=== PATIENT | female | born 1935 | race Caucasian/White ===

== ENCOUNTER 2016-11-14 13:52 | Outpatient (CLI) | payer OTHER, BC ==
[2016-11-14 14:30] VITALS: BP 143/98; PULSE 92; RESP 16; TEMP 98.4
== END 2016-11-14 18:00 | disposition home or self-care (01) ==
LOC: FOBOP 13:52
PROVIDERS: ATTEND Family Medicine
PROC: 30233N1 Transfusion of Nonautologous Red Blood Cells into Peripheral Vein, Percutaneous Approach (ICD-10-PCS; principal; 2016-11-14)
DX: D50.0 Iron deficiency anemia secondary to blood loss (chronic) (principal); Z88.8 Allergy status to other drugs, medicaments and biological substances; Z88.2 Allergy status to sulfonamides
CPT/HCPCS: 36430; P9021

== ENCOUNTER → 2018-03-08 | Outpatient (CLI) | payer OTHER | LOC: CIMAGING 07:17 | PROVIDERS: ATTEND Family Medicine | DX: D64.9 Anemia, unspecified (principal); R19.03 Right lower quadrant abdominal swelling, mass and lump; R63.4 Abnormal weight loss; K76.0 Fatty (change of) liver, not elsewhere classified | CPT/HCPCS: 76700-PO ==

== ENCOUNTER 2018-03-30 15:40 | Emergency (ER) | payer OTHER ==
--- NOTE | 2018-03-30 15:55 | EDPHY ---
H & P Stated Complaint: NVD Time Seen by Provider: 03/30/18 15:55 - Personal History Current Tetanus Diphtheria and Acellular Pertussis (TDAP): Yes - Medical/Surgical History Hx Asthma: No Hx Chronic Respiratory Disease: No Hx Diabetes: No Hx Cardiac Disease: No Hx Renal Disease: No Hx Cirrhosis: No Hx Alcoholism: No Hx HIV/AIDS: No Hx Splenectomy or Spleen Trauma: No Other PMH: ANEMIA, OSTEOPOROSIS, CATARACTS - Social History Smoking Status: Never smoked Constitutional: Initial Vital Signs Temperature (C) 36.7 C 03/30/18 15:46 Heart Rate 105 H 03/30/18 15:46 Respiratory Rate 18 03/30/18 15:46 Blood Pressure 133/72 H 03/30/18 15:46 O2 Sat (%) 97 03/30/18 15:46 O2 Delivery Mode Room Air Allergies/Adverse Reactions: promethazine [From Phenergan] Allergy (Severe, Verified 03/30/18 15:46) Sulfa (Sulfonamide Antibiotics) Allergy (Mild, Verified 03/30/18 15:46) Rash metoclopramide [From Reglan] Allergy (Verified 03/30/18 15:46) Home Medications: Medication Instructions Recorded Ondansetron Odt [Zofran Odt 4 mg 4 mg PO Q4 PRN #12 tab 10/29/17 (*)] Restasis Opht Drops(*) 10/29/17 Medical Decision Making ED Course/Re-evaluation: CHIEF COMPLAINT: HISTORY OF PRESENT ILLNESS: must have 4 elements: Location, Quality, Severity , Duration, Timing, Context, Modifying Factors, Associated Signs and Symptoms REVIEW OF SYSTEMS: A comprehensive 10 system review of systems is otherwise negative aside from elements mentioned in the history of present illness and medical decision making. PHYSICAL EXAM: HR, BP, O2 Sat, RR. Temp noted General Appearance: Alert, well hydrated, appropriate, and non-toxic appearing. Head: Atraumatic without scalp tenderness or obvious injury Eyes: Pupils equal, round, reactive to light and accommodation, EOMI, no trauma , no injection. Ears: Clear bilaterally, no perforation, normal landmarks Nose: Atraumatic, no rhinorrhea, clear. Throat: There is no erythema or exudates, no lesions, normal tonsils, mucus membranes moist. Neck: Supple, 2+ carotid upstroke, nontender, no lymphadenopathy. Respiratory: No retractions, no distress, no wheezes, and no accessory muscle use. Lungs are clear to auscultation bilaterally. Cardiovascular: Regular rate and rhythm, no murmurs, rubs, or gallops. Bilateral carotid, radial, dorsalis pedis, and posterior tibial pulses intact. Good capillary refill all extremities. Gastrointestinal: Abdomen is soft, nontender, non-distended, no masses, no rebound, no guarding, no peritoneal signs. Musculoskeletal: Normal active ROM of all extremities, atraumatic. Neurological: Alert, appropriate, and interactive. The patient has normal DTRs and non-focal cranial nerves, motor, sensory, and cerebellar exam. Skin: No rashes, good turgor, no nodules on palpation. Past medical history: Past surgical history: Family history: Social history: DIAGNOSTICS/PROCEDURES/CRITICAL CARE TIME: DIFFERENTIAL DIAGNOSIS: MEDICAL DECISION MAKING: Departure - Departure Condition: Good Referrals: Arabella Alfonso MD [Primary Care Provider] - As per Instructions
[2018-03-30] MEDS ORDERED: NS 1,000 ML IV ONE (15:56)
--- NOTE | 2018-03-30 16:11 | EDPHY ---
H & P Stated Complaint: NVD Time Seen by Provider: 03/30/18 15:55 HPI/ROS: CHIEF COMPLAINT: Nausea, vomiting, diarrhea, feels dehydrated HISTORY OF PRESENT ILLNESS: The patient presents the ED with several days of nausea, vomiting and diarrhea. The patient reports her symptoms began after taking a single dose of Keflex. The patient reportedly has recently been diagnosed with an abdominal mass and is scheduled to undergo colonoscopy at the end of the week. The patient reports that over the past day her vomiting has improved however she does feel dehydrated is concerned about rehydrating prior to her endoscopy. The patient was seen by her primary care provider and diagnosed with mild hyponatremia which prompted her referral to the emergency department. The patient denies significant abdominal pain currently. The patient denies fever, cough or congestion. REVIEW OF SYSTEMS: A comprehensive 10 point review of systems is otherwise negative aside from elements mentioned in the history of present illness. Source: Patient Exam Limitations: No limitations - Personal History Current Tetanus Diphtheria and Acellular Pertussis (TDAP): Yes - Medical/Surgical History Hx Asthma: No Hx Chronic Respiratory Disease: No Hx Diabetes: No Hx Cardiac Disease: No Hx Renal Disease: No Hx Cirrhosis: No Hx Alcoholism: No Hx HIV/AIDS: No Hx Splenectomy or Spleen Trauma: No Other PMH: ANEMIA, OSTEOPOROSIS, CATARACTS - Social History Smoking Status: Never smoked - Physical Exam Exam: General Appearance: Thin female, no acute distress Eyes: Pupils equal and round no pallor or injection ENT, Mouth: Dry mucous membranes Respiratory: There are no retractions, lungs are clear to auscultation Cardiovascular: Regular rate and rhythm Gastrointestinal: Abdomen is soft and nontender, no masses, bowel sounds normal Neurological: A&O, normal motor function, normal sensory exam, normal cranial nerves Skin: Abrasions noted to bilateral lower extremities Musculoskeletal: Neck is supple nontender Extremities: 1+ edema bilaterally Psychiatric: Patient is oriented X 3, there is no agitation Constitutional: Initial Vital Signs Temperature (C) 36.7 C 03/30/18 15:46 Heart Rate 105 H 03/30/18 15:46 Respiratory Rate 18 03/30/18 15:46 Blood Pressure 133/72 H 03/30/18 15:46 O2 Sat (%) 97 03/30/18 15:46 O2 Delivery Mode Room Air Allergies/Adverse Reactions: promethazine [From Phenergan] Allergy (Severe, Verified 03/30/18 15:46) Sulfa (Sulfonamide Antibiotics) Allergy (Mild, Verified 03/30/18 15:46) Rash metoclopramide [From Reglan] Allergy (Verified 03/30/18 15:46) Home Medications: Medication Instructions Recorded Ondansetron Odt [Zofran Odt 4 mg 4 mg PO Q4 PRN #12 tab 10/29/17 (*)] Restasis Opht Drops(*) 10/29/17 Ondansetron Odt [Zofran Odt] 4 mg PO Q4PRN PRN #20 tab 03/30/18 Medical Decision Making ED Course/Re-evaluation: The patient was referred to the emergency department by her primary care provider for assumed admission secondary to hypovolemia electrolyte abnormalities. The patient has been having vomiting and diarrhea this week and was noted to have a sodium of 127 yesterday. The patient arrived she did appear mildly dehydrated. She had an IV established. Her sodium was recheck and found to be 132. The patient has normal renal function. She has no leukocytosis. The patient received a L of normal saline in the emergency department. The patient reports to me that her vomiting subsided today. She is scheduled to undergo colonoscopy on Wednesday however I do not feel that she needs to be admitted to the hospital secondary to dehydration and a metabolic derangement. The patient is comfortable going home. She does understand that she can return to the ED for any difficulty maintaining adequate hydration. I see no reason why she cannot perform a bowel prep and undergo for colonoscopy on Wednesday. I did attempt to reach the patient's primary care provider after hours without success. Patient will be given a prescription for Zofran. She is discharged home with customary aftercare instructions and return precautions. Differential Diagnosis: Differential diagnosis considered includes dehydration, metabolic abnormality, renal failure - Data Points Laboratory Results: Laboratory Results 03/30/18 16:15 03/30/18 16:15 03/30/18 03/30/18 16:15 16:15 WBC 8.71 10^3/uL 10^3/uL (3.80-9.50) RBC 3.86 10^6/uL L 10^6/uL (4.18-5.33) Hgb 9.3 g/dL L g/dL (12.6-16.3) Hct 30.9 % L % (38.0-47.0) MCV 80.1 fL L fL (81.5-99.8) MCH 24.1 pg L pg (27.9-34.1) MCHC 30.1 g/dL L g/dL (32.4-36.7) RDW 21.8 % H % (11.5-15.2) Plt Count 510 10^3/uL H 10^3/uL (150-400) MPV 8.8 fL fL (8.7-11.7) Neut % (Auto) 77.0 % H % (39.3-74.2) Lymph % (Auto) 15.2 % % (15.0-45.0) [place] % (Auto) 5.6 % % (4.5-13.0) Eos % (Auto) 0.1 % L % (0.6-7.6) Baso % (Auto) 0.1 % L % (0.3-1.7) Nucleat RBC Rel Count 0.0 % % (0.0-0.2) Absolute Neuts (auto) 6.71 10^3/uL H 10^3/uL (1.70-6.50) Absolute Lymphs (auto) 1.32 10^3/uL 10^3/uL (1.00-3.00) Absolute Monos (auto) 0.49 10^3/uL 10^3/uL (0.30-0.80) Absolute Eos (auto) 0.01 10^3/uL L 10^3/uL (0.03-0.40) Absolute Basos (auto) 0.01 10^3/uL L 10^3/uL (0.02-0.10) Absolute Nucleated RBC 0.00 10^3/uL 10^3/uL (0-0.01) Immature Gran % 2.0 % H % (0.0-1.1) Immature Gran # 0.17 10^3/uL H 10^3/uL (0.00-0.10) Sodium 132 mEq/L L mEq/L (135-145) Potassium 3.8 mEq/L mEq/L (3.5-5.2) Chloride 97 mEq/L mEq/L (97-110) Carbon Dioxide 24 mEq/l mEq/l (22-31) Anion Gap 11 mEq/L mEq/L (6-14) BUN 17 mg/dL mg/dL (7-23) Creatinine 0.5 mg/dL L mg/dL (0.6-1.0) Estimated GFR > 60 Glucose 90 mg/dL mg/dL (70-100) Calcium 8.5 mg/dL mg/dL (8.5-10.4) Total Bilirubin 0.8 mg/dL mg/dL (0.1-1.4) Conjugated Bilirubin 0.7 mg/dL H mg/dL (0.0-0.5) Unconjugated Bilirubin 0.1 mg/dL mg/dL (0.0-1.1) AST 19 IU/L IU/L (14-46) ALT 23 IU/L IU/L (9-52) Alkaline Phosphatase 100 IU/L IU/L (38-126) Total Protein 5.5 g/dL L g/dL (6.3-8.2) Albumin 2.6 g/dL L g/dL (3.5-5.0) Lipase 15 IU/L L IU/L (23-300) Medications Given: Discontinued Medications Sodium Chloride (Ns) 1,000 mls @ 0 mls/hr IV EDNOW ONE; Wide Open PRN Reason: Protocol Stop: 03/30/18 15:57 Last Admin: 03/30/18 16:26 Dose: 1,000 mls Departure - Departure Disposition: Home, Routine, Self-Care Clinical Impression: Gastroenteritis Condition: Good Instructions: Gastroenteritis (ED) Additional Instructions: 1. Zofran as needed for nausea and vomiting. 2. Please contact your primary care provider to review your ED visit from today. 3. Return to the ED for intractable vomiting, worsening dehydration or other concerns. Referrals: Arabella Alfonso MD [Primary Care Provider] - As per Instructions
[2018-03-30 16:37] LABS: PLATELET COUNT 510 10^3/uL (150-400)
[2018-03-30 18:48] VITALS: BP 118/76
== END 2018-03-30 18:48 | disposition home or self-care (01) ==
DX: K52.9 Noninfective gastroenteritis and colitis, unspecified (principal); R19.00 Intra-abdominal and pelvic swelling, mass and lump, unspecified site; E86.9 Volume depletion, unspecified

== ENCOUNTER 2018-04-21 09:44 | Inpatient (IN) | payer OTHER ==
[~2018-04-21 09:44] MED LIST: DEXMEDETOMIDINE HCL 400 MCG in NS 100 ML IV SCH; cefOXitin SODIUM 2 GM in NS 100 ML IV ONE
[2018-04-21] MEDS ORDERED: LR 1,000 ML IV ONE (09:59)
[2018-04-21] MEDS ORDERED: BUPIVACAINE 0.5% 30 ML SDV ONE ×2 (09:59→12:31)
[2018-04-21] MEDS ORDERED: PROPOFOL 200 MG/20 ML VIAL ONE (11:07)
[2018-04-21] MEDS ORDERED: fentaNYL 100 MCG/2 ML INJ ONE ×3 (11:07→13:58)
[2018-04-21] MEDS ORDERED: DEXAMETHASONE 4 MG/ML VIAL ONE (11:08)
--- NOTE | 2018-04-21 11:12 | PDANEPAE ---
ANE Past Medical History - Cardiovascular History Hx Hypertension: No Hx Arrhythmias: No Hx Chest Pain: No Hx Coronary Artery / Peripheral Vascular Disease: No Hx CHF / Valvular Disease: No Hx Palpitations: No - Pulmonary History Hx COPD: No Hx Asthma/Reactive Airway Disease: No Hx Recent Upper Respiratory Infection: No Hx Oxygen in Use at Home: No Hx Sleep Apnea: No Sleep Apnea Screening Result - Last Documented: Negative - Neurologic History Hx Cerebrovascular Accident: No Hx Seizures: No Hx Dementia: No - Endocrine History Hx Diabetes: No - Renal History Hx Renal Disorders: No - Liver History Hx Hepatic Disorders: No - Neurological & Psychiatric Hx Hx Neurological and Psychiatric Disorders: Yes Neurological / Psychiatric History Comment: anxiety- situational. claustrophia - Cancer History Hx Cancer: Yes Cancer History Comment: basal cell ca - Congenital Disorder History Hx Congenital Disorders: No - GI History Hx Gastrointestinal Disorders: Yes Gastrointestinal History Comment: recent colonoscopy. cecal mass. diverticulosis. diarrhea. severe abd pain last two weeks - Other Health History Other Health History: wears glasses. very dry skin. recent wound to right leg - healing no open areas. edema to bilateral feet and ankles- new development - Chronic Pain History Chronic Pain: No - Surgical History Prior Surgeries: tonsillectomy. bilateral cataracts 08/2016. hysterectomy. d& c. colonoscopy ANE Review of Systems Review of Systems: - Exercise capacity METS (RN): 4 METS ANE Patient History - Allergies Allergies/Adverse Reactions: metoclopramide [From Reglan] Allergy (Verified 04/15/18 12:08) Anaphylaxis promethazine [From Phenergan] Allergy (Verified 04/15/18 12:08) Anaphylaxis Sulfa (Sulfonamide Antibiotics) Allergy (Verified 04/15/18 12:08) Rash - Home Medications Home medications: home medication list seen and reviewed Home Medications: cycloSPORINE 0.05% [Restasis Opht Drops(*)] 1 drop EACHEYE BID 04/14/18 [Last Taken 04/20/18] - NPO status NPO Since - Liquids (Date): 04/20/18 NPO Since - Liquids (Time): 23:59 NPO Since - Solids (Date): 04/19/18 - Anes Hx Anes Hx: no prior problems, slow to awaken from anesthesia - Smoking Hx Smoking Status: Never smoked - Family Anes Hx Family Anes Hx: none Family Hx Anesthesia Complications: none ANE Labs/Vital Signs - Labs - CBC Platelet Count: 597 - Vital Signs Vital Signs: reviewed preoperatively; see RN documention for details Blood Pressure: 122/84 Heart Rate: 88 Respiratory Rate: 16 O2 Sat (%): 97 Height: 149.86 cm Weight: 36.741 kg ANE Physical Exam - Airway Neck exam: decreased ROM Mallampati Score: Class 1 Mouth exam: normal dental/mouth exam - Pulmonary Pulmonary: clear to auscultation - Cardiovascular Cardiovascular: regular rate and rhythym - ASA Status ASA Status: III ANE Anesthesia Plan Anesthesia Plan: general endotracheal anesthesia, epidural
--- NOTE | 2018-04-21 11:13 | PDHPUP ---
History & Physical Update H&P update statement: This history and physical update is based on an assessment of the patient which was completed after admission or registration (within 24 hours), but prior to the surgery/procedure. H&P update: H&P reviewed & patient examined, no change in patient's condition since H&P completed
[2018-04-21] MEDS ORDERED: ESMOLOL HCL 100 MG/10 ML VIAL IV ONE (12:31)
[2018-04-21] MEDS ORDERED: ROCURONIUM 50 MG/5 ML VIAL ONE (12:39)
[2018-04-21] MEDS ORDERED: PHENYLEPHRINE HCL 100 MCG/ML SYR ONE (12:39)
[2018-04-21] MEDS ORDERED: ONDANSETRON 4 MG/2 ML VIAL ONE ×2 (13:32→13:56)
[2018-04-21] MEDS ORDERED: SUGAMMADEX SODIUM 200 MG/2 ML VIAL IVP ONE (13:35)
[2018-04-21] MEDS ORDERED: ACETAMINOPHEN 325 MG TAB PO PRN (13:41)
--- NOTE | 2018-04-21 13:44 | POSTOPPROG ---
Post Op Note Date of Operation: 04/21/18 Surgeon: Codi Jack Transport Tank Technician: cinda Anesthesiologist: geetha Anesthesia: GET(General Endotracheal) Pre-op Diagnosis: colon mass Post-op Diagnosis: same Indication: 82 yo with large colon mass Procedure: open r tomas, small bowel resection, oophorectomy, liver biopsy Findings: colon tethered to abdominal side wall and smallbowel. Lesion l lobe of mariya Inf/Abcess present in the surg proc area at time of surgery?: No EBL: 50-100 Specimen(s): colon, small bowel, ovary, liver biopsy
[2018-04-21] MEDS ORDERED: LR 500 ML IV PRN (13:55)
[2018-04-21] MEDS ORDERED: ONDANSETRON 4 MG/2 ML VIAL IVP PRN (13:55)
[2018-04-21] MEDS ORDERED: ALBUTEROL 3 ML DEYVIAL IH PRN (13:55)
[2018-04-21] MEDS ORDERED: DIAZEPAM 5 MG/ML 1 ML SYR IVP PRN (13:55)
[2018-04-21] MEDS ORDERED: NALOXONE HCL 0.4 MG/ML INJ IVP PRN (13:55)
[2018-04-21] MEDS: fentaNYL 100 MCG/2 ML INJ IVP PRN ×2 (14:00→14:10)
--- NOTE | 2018-04-21 14:05 | POSTANESTH ---
Post Anesthetic Evaluation Cardiovascular Status: Normal, Stable Respiratory Status: Normal, Stable Level of Consciousness/Mental Status: Can Participate in Eval Pain Control: Inadeq, Add Tx Required Nausea/Vomiting Control: Adequate, Prn Tx Ordered Complications Possibly Related to Anesthesia: None Noted (No level with epidural. Redosed. Will remove if not working.)
[2018-04-21] MEDS: ONDANSETRON 4 MG/2 ML VIAL IVP PRN ×2 (14:11→15:55)
[2018-04-21] MEDS ORDERED: HYDROmorphONE/DILAUDID 2 MG/ML INJ ONE (14:21)
[2018-04-21] MEDS: HYDROmorphONE/DILAUDID 2 MG/ML INJ IVP PRN ×3 (14:23→15:37)
--- NOTE | 2018-04-21 15:46 | PDMN ---
Medical Necessity Medical necessity: Pt meets IP criteria as of 04/21/2018 per and [facility] [place] [id number] ( hemicolectomy); Medicare IP only procedure
[2018-04-21] MEDS: NS 1,000 ML IV SCH (16:30)
[2018-04-21] MEDS: cycloSPORINE 0.05% 30 DROPERETTE/BOX EACHEYE SCH (22:57)
[2018-04-22] MEDS: ONDANSETRON 4 MG/2 ML VIAL IVP PRN ×3 (03:22→12:42)
[2018-04-22] MEDS: NS 1,000 ML IV SCH ×2 (05:27→17:15)
[2018-04-22 05:48] LABS: PLATELET COUNT 378 10^3/uL (150-400)
--- NOTE | 2018-04-22 08:44 | SOAPPROG ---
SOAP Progress Note Assessment/Plan: Assessment/Plan: 82yo F s/p open R hemicolectomy, SB resection, oophorectomy and liver biopsy for large cecal mass, liver nodule (r/o met). IV pain medication until able to tolerate PO NPO - sips and chips. OK to have 1 popsicle / shift. Marcos IVF No flatus or BM Ambulation, deep breathing, IS Dispo: inpatient 3-7d until return of bowel function.Seen with Dr. Jack S: hard night, not much sleep. no flatus. burping. cramping O: laying in bed, comfortable, NAD CTAB no increased WOB RRR, 1+ peripheral edema +BS, soft, +distended, tender. Midline dressing in place, no staining Marcos clear yellow urine Objective: Vital Signs Temp Pulse Resp BP Pulse Ox 36.4 C 90 20 114/70 100 04/22/18 03:30 04/22/18 03:30 04/22/18 03:30 04/22/18 03:30 04/22/18 03:30 Laboratory Results 04/22/18 05:28 04/22/18 05:28 04/21/18 04/22/18 04/23/18 05:59 05:59 05:59 Intake Total 2600 Output Total 170 550 Balance 2430 -550 ICD10 Worksheet Patient Problems: Problems Problem Status Onset Mass of cecum Acute - ICD10 Problem Qualifiers (1) Mass of cecum
[2018-04-22] MEDS: cycloSPORINE 0.05% 30 DROPERETTE/BOX EACHEYE SCH ×2 (09:20→21:05)
--- NOTE | 2018-04-22 15:55 | SOAPPROG ---
SOAP Progress Note Assessment/Plan: Assessment: 82yo F s/p open R hemicolectomy, SB resection, oophorectomy and liver biopsy for large cecal mass, liver nodule (r/o met). Plan: Continue IV pain medication until able to tolerate PO NPO - sips and chips. Hold popsicles as she thinks she had a reaction to the preservaties Marcos - can come out tomorrow IVF Continue PT/OT, needs to be up in chair Lovenox Ambulation, deep breathing, IS Dispo: inpatient 3-7d until return of bowel function S: No flatus or BM, continues to burp. Worked with PT sitting up and hanging legs over side of bed. Allergic reaction to popsicle, had difficulty swallowing. Symptoms have since resolved, no medication was needed. O: laying in bed, comfortable, NAD. at bedside. No increased WOB +BS, soft, +distended, mild diffuse tenderness. Midline dressing in place, no staining urine clear 04/22/18 15:53 04/23/18 06:47 Objective: Vital Signs Temp Pulse Resp BP Pulse Ox 36.6 C 102 H 16 105/62 95 04/22/18 11:20 04/22/18 11:20 04/22/18 11:20 04/22/18 11:20 04/22/18 11:20 Laboratory Results 04/22/18 05:28 04/22/18 05:28 04/21/18 04/22/18 04/23/18 05:59 05:59 05:59 Intake Total 2600 Output Total 170 550 Balance 2430 -550 ICD10 Worksheet Patient Problems: Problems Problem Status Onset Mass of cecum Acute
--- NOTE | 2018-04-22 16:26 | ASMTCMCOM ---
CM Note CM Note Notes: Pt is staus post liver biopsy and colon resection. She lives at home with , pt worked with PT today, limited by pain but may progress. Recommendation is SNF vs H, OT still pending. JENNA w/f. DC Plan: TBD Date Signed: 04/22/2018 04:25 PM Electronically Signed By:Ledy Qiu RN
--- NOTE | 2018-04-22 17:01 | ASMTCMCOM ---
CM Note CM Note Notes: Discussed pt with pharmacist, pt does not want TPN at home. He is eating more and they will start to wean him off. Hopefully he can dc home w/support of . [facility] was given a referra several weeks ago but pt did not want. DC home w/ when medically stable. DC Plan: Independent Date Signed: 04/22/2018 05:00 PM Electronically Signed By:Ledy Qiu RN
[2018-04-22] MEDS ORDERED: KETOROLAC 15 MG/1 ML SDV IVP ONE (18:00)
[2018-04-23] MEDS: NS 1,000 ML IV SCH ×2 (04:44→18:50)
[2018-04-23 07:45] LABS: PLATELET COUNT 330 10^3/uL (150-400)
[2018-04-23] MEDS: cycloSPORINE 0.05% 30 DROPERETTE/BOX EACHEYE SCH ×2 (08:12→20:23)
[2018-04-23] MEDS: ENOXAPARIN 30 MG/0.3 ML SYR SC SCH (08:13)
[2018-04-23] MEDS ORDERED: ENOXAPARIN 40 MG/0.4 ML SYR SC SCH (09:00)
--- NOTE | 2018-04-23 09:10 | GOP ---
[f rep st] OPERATIVE REPORT DATE OF OPERATION: 04/21/2018 SURGEON: Codi Jack MD BUSINESS INFORMATION ANALYST: Hardy Johnson MD. ANESTHESIOLOGIST: Mell Cat MD PREOPERATIVE DIAGNOSIS: Cecal mass, liver mass, and possible sigmoid stricture. POSTOPERATIVE DIAGNOSIS: Cecal mass and liver mass, colon cancer with likely metastasis. PROCEDURE PERFORMED: Open right hemicolectomy, small-bowel resection, oophorectomy, and liver biopsy. FINDINGS: She had an extremely large cecal mass that was tethered to the lateral abdominal wall. It was very stuck retroperitoneal. There were loops of small bowel intimately associated with the cecum as well as the ovary. She had a liver mass in the left lobe of the liver at the dome. I did not find any stricture or tethering of her remaining colon. SPECIMENS: 1. En bloc resection of right hemicolectomy, small-bowel ovary. 1. Liver biopsy. 2. ESTIMATED BLOOD LOSS: 200 cc. INDICATIONS: Landy Elkins is an 82-year-old woman, who was found to have a very large cecal mass. Colonoscopy was obtained, but they were unable to go into the transverse colon due to external compression. She was also noted to have a liver lesion on CT. DESCRIPTION OF PROCEDURE: Patient was brought into the operating room, placed supine on the table, and general anesthesia was administered. Her abdomen was prepped and draped in the usual sterile fashion. I made an incision from above her umbilicus down through the midline. I dissected down through the skin subcutaneous tissue until I encountered the fascia. I elevated this, divided it , and then was able to fully expose. I placed a large Jose wound protector. I immediately encountered the large cecal mass and found that this was intimately associated with the sidewall as well as the retroperitoneum. The white line of Toldt was essentially obliterated. I had to perform careful and tedious dissection to medialize it from the sidewall. The ureter was identified , protected, and carefully dissected away from the mass. The duodenum was also visualized and dissected free from the mass. I was able to completely take down the hepatic flexure at the transverse colon. There were no areas of adhesion. At the area of the cecum, she had a piece of bowel directly entering the cecum. This was divided with a MICHELLE 75. Also noted that her ovary was in the same area. She had a 2nd piece of bowel that was intimately associated, and this was divided as well. Upon examining this en bloc resection, it was actually the same loop of bowel. I could divide the mesentery. Her right colic artery was generous. We performed careful dissection until this was the only structure directly entering the area. I could feel a few lymph nodes, but again due to the contraction and the large vessels, I did not dissect deep down into the mesentery for fear that I would be injuring other vessels. I divided the right colic with the Harmonic. I then placed a 2-0 tie over it to secure it. I passed the specimen off the field. I then spent time exploring her abdomen. I ran the remaining part of her colon, and there were no other abnormalities noted. There were no signs of carcinomatosis. There were no peritoneal or mesenteric implants. On the dome of her liver on the left side, she did have a lesion. I used electrocautery to biopsy this. Hemostasis was achieved and Surgicel applied. Next, I examined the small bowel. I aligned the small bowel to the transverse colon along the antimesenteric borders. I placed stay sutures and then created 2 enterotomies, 1 on each limb of the bowel. I placed a MICHELLE 75 to create a [id number] functional end-to-end anastomosis. I then closed the enterotomy with a MICHELLE 75. Hemostasis was achieved. I placed a few reinforcement sutures to prevent tension from any of the staple lines or from the [id number] anastomosis. I closed the mesenteric defect with 3-0 Vicryl. The abdomen was inspected again. The fascia was closed with #1 PDS, yamilet applied, and then a silver dressing. She was awakened in the operating room, extubated, and transferred to PACU in stable condition. /[id number]/MODL MTDD
--- NOTE | 2018-04-23 11:46 | ASMTCMCOM ---
CM Note CM Note Notes: Spoke with pt today - she does not want a SNF d/c but would like HC PT/OT. Encouraged her to get input from PT/OT. Discussed HC options and she would like [facility]. Referral sent via [employer]. Pt lives in [place] ([place] [id number]) with her partner. CM will continue to follow. Date Signed: 04/23/2018 11:45 AM Electronically Signed By:SARAH Burris
[2018-04-23] MEDS: KETOROLAC 15 MG/1 ML SDV IVP SCH ×2 (12:45→19:22)
[2018-04-23] MEDS: ONDANSETRON 4 MG/2 ML VIAL IVP PRN (13:56)
--- NOTE | 2018-04-23 16:15 | SOAPPROG ---
SOAP Progress Note Assessment/Plan: Assessment: DOING REASONABLY WELL POSTOP/WOUND OKAY/ABDOMEN SOFT WITH MINIMAL TENDERNESS AND POSITIVE BOWEL SOUNDS/URINE OUTPUT OKAY AFEBRILE/VITAL SIGNS STABLE ABDOMEN SOFT WITH SOME BOWEL SOUNDS CHEST CLEAR COR REGULAR RHYTHM HEENT NONICTERIC Plan: START CLEAR LIQUIDS 04/23/18 16:13 Objective: Vital Signs Temp Pulse Resp BP Pulse Ox 36.9 C 97 16 99/62 L 94 04/23/18 15:56 04/23/18 15:56 04/23/18 15:56 04/23/18 15:56 04/23/18 15:56 Laboratory Results 04/23/18 07:31 04/22/18 05:28 04/22/18 04/23/18 04/24/18 05:59 05:59 05:59 Intake Total 2600 Output Total 170 1225 Balance 2430 -1225 ICD10 Worksheet Patient Problems: Problems Problem Status Onset Mass of cecum Acute
[2018-04-23] MEDS: PANTOPRAZOLE SODIUM 40 MG VIAL IVP SCH (19:21)
[2018-04-24] MEDS: KETOROLAC 15 MG/1 ML SDV IVP SCH ×5 (00:06→23:32)
[2018-04-24] MEDS: NS 1,000 ML IV SCH ×3 (05:06→23:33)
[2018-04-24] MEDS ORDERED: NS 250 ML IV ONE (07:00)
[2018-04-24] MEDS: ONDANSETRON 4 MG/2 ML VIAL IVP PRN ×4 (08:02→23:33)
[2018-04-24] MEDS: ENOXAPARIN 30 MG/0.3 ML SYR SC SCH (08:02)
[2018-04-24] MEDS: PANTOPRAZOLE SODIUM 40 MG VIAL IVP SCH (08:03)
[2018-04-24] MEDS: cycloSPORINE 0.05% 30 DROPERETTE/BOX EACHEYE SCH ×2 (11:53→19:52)
--- NOTE | 2018-04-24 13:28 | SOAPPROG ---
SOAP Progress Note Assessment/Plan: Assessment: DOING REASONABLY WELL POSTOP/WOUND OKAY/ABDOMEN SOFT WITH MINIMAL TENDERNESS AND POSITIVE BOWEL SOUNDS/URINE OUTPUT OKAY AFEBRILE/VITAL SIGNS STABLE ABDOMEN SOFT WITH SOME BOWEL SOUNDS CHEST CLEAR COR REGULAR RHYTHM HEENT NONICTERIC Plan: START CLEAR LIQUIDS 04/23/18 16:13 04/24/18 13:27 afebrile/ wound ok/ vac inplace/ afebrile/ uo good abd soft with bs tolerating clears chest clear/ cor rr Objective: Vital Signs Temp Pulse Resp BP Pulse Ox 36.6 C 100 16 102/64 96 04/24/18 12:00 04/24/18 12:00 04/24/18 12:00 04/24/18 12:00 04/24/18 12:00 Laboratory Results 04/23/18 07:31 04/22/18 05:28 04/23/18 04/24/18 04/25/18 05:59 05:59 05:59 Intake Total 1020 360 Output Total 1225 120 60 Balance -1225 900 300 ICD10 Worksheet Patient Problems: Problems Problem Status Onset Mass of cecum Acute
[2018-04-25] MEDS: KETOROLAC 15 MG/1 ML SDV IVP SCH ×3 (06:39→17:43)
[2018-04-25] MEDS: PANTOPRAZOLE SODIUM 40 MG VIAL IVP SCH (08:14)
[2018-04-25] MEDS: ENOXAPARIN 30 MG/0.3 ML SYR SC SCH (08:15)
[2018-04-25] MEDS: cycloSPORINE 0.05% 30 DROPERETTE/BOX EACHEYE SCH ×2 (12:55→19:18)
[2018-04-25] MEDS ORDERED: LORazepam 2 MG/ML INJ IVP PRN (15:49)
--- NOTE | 2018-04-25 15:52 | SOAPPROG ---
SOAP Progress Note Assessment/Plan: Assessment/Plan: 82yo F POD#4 s/p open R hemicolectomy, SB resection, oophorectomy and liver biopsy for large cecal mass, liver nodule (r/o met). IV pain medication until able to tolerate PO Clear liquids - advanced yesterday but had vomiting after eating - back off. Voiding spontaneously s/p porras removal IVF Passing flatus. Several small BM Ambulation, deep breathing, IS Dispo: continue inpatient until return of bowel function. Seen with Dr. Jack S: still not sleeping well - may do better in a room not next to the nursing station. passing gas overnight. abd feels less distended. O: laying in bed, comfortable, NAD CTAB no increased WOB RRR, 1+ peripheral edema +BS, soft, +distended, nontender. Midline dressing in place, no staining Objective: Vital Signs Temp Pulse Resp BP Pulse Ox 36.6 C 95 18 119/60 95 04/25/18 15:05 04/25/18 15:05 04/25/18 15:05 04/25/18 15:05 04/25/18 15:05 Laboratory Results 04/23/18 07:31 04/22/18 05:28 04/24/18 04/25/18 04/26/18 05:59 05:59 05:59 Intake Total 1020 2440 100 Output Total 120 805 475 Balance 900 1635 -375 ICD10 Worksheet Patient Problems: Problems Problem Status Onset Mass of cecum Acute - ICD10 Problem Qualifiers (1) Mass of cecum
[2018-04-25] MEDS: NS 1,000 ML IV SCH (16:12)
[2018-04-26] MEDS: KETOROLAC 15 MG/1 ML SDV IVP SCH ×4 (00:05→18:25)
[2018-04-26] MEDS: NS 1,000 ML IV SCH ×2 (05:59→18:26)
--- NOTE | 2018-04-26 08:45 | SOAPPROG ---
SOAP Progress Note Assessment/Plan: Assessment/Plan: 82yo F POD#5 s/p open R hemicolectomy, SB resection, oophorectomy and liver biopsy for large cecal mass, liver nodule (r/o met). Path pending Transition to PO meds if needed. Regular diet Voiding spontaneously s/p porras removal Passing flatus and bowel movements Ambulation, deep breathing, IS Dispo: continue inpatient until return of bowel function. Seen with Dr. Jack S: slept better overnight. nausea improved. distension going down. O: sitting upright in chair, comfortable, NAD CTAB no increased WOB RRR, 1+ peripheral edema +BS, soft, +distended, nontender. Midline dressing in place, no staining Objective: Vital Signs Temp Pulse Resp BP Pulse Ox 36.5 C 91 16 110/63 94 04/26/18 07:18 04/26/18 07:18 04/26/18 07:18 04/26/18 07:18 04/26/18 07:18 Laboratory Results 04/23/18 07:31 04/22/18 05:28 04/25/18 04/26/18 04/27/18 05:59 05:59 05:59 Intake Total 2440 4309 Output Total 805 1500 Balance 1635 1359 ICD10 Worksheet Patient Problems: Problems Problem Status Onset Mass of cecum Acute - ICD10 Problem Qualifiers (1) Mass of cecum
[2018-04-26] MEDS ORDERED: HYDROCODONE/APAP 5/325 TAB PO PRN (08:48)
[2018-04-26] MEDS: cycloSPORINE 0.05% 30 DROPERETTE/BOX EACHEYE SCH ×2 (09:22→20:18)
[2018-04-26 10:19] LABS: PLATELET COUNT 410 10^3/uL (150-400)
[2018-04-26] MEDS: ENOXAPARIN 30 MG/0.3 ML SYR SC SCH (10:37)
[2018-04-26] MEDS: PANTOPRAZOLE SODIUM 40 MG TAB PO SCH (10:37)
[2018-04-26] MEDS: PANTOPRAZOLE SODIUM 40 MG VIAL IVP SCH (10:40)
[2018-04-26] MEDS: LORazepam 0.5 MG TAB PO PRN (20:18)
[2018-04-27] MEDS: KETOROLAC 15 MG/1 ML SDV IVP SCH ×2 (00:03→05:50)
[2018-04-27] MEDS ORDERED: POTASSIUM CL 20 MEQ/15 ML UDCUP PO ONE (07:01)
[2018-04-27] MEDS: PANTOPRAZOLE SODIUM 40 MG TAB PO SCH (08:17)
[2018-04-27] MEDS: cycloSPORINE 0.05% 30 DROPERETTE/BOX EACHEYE SCH ×2 (08:17→20:00)
[2018-04-27] MEDS: ENOXAPARIN 30 MG/0.3 ML SYR SC SCH (08:17)
--- NOTE | 2018-04-27 08:22 | SOAPPROG ---
SOAP Progress Note Assessment/Plan: Assessment/Plan: 82yo F POD#6 s/p open R hemicolectomy, SB resection, oophorectomy and liver biopsy for large cecal [id number] colon cancer PO meds. Regular diet Passing flatus and bowel movements Still with some nausea Ambulation, deep breathing, IS Dispo: home in next few days S: slept better overnight. nausea improved. distension going down. O: lying in bed, comfortable, NAD CTAB no increased WOB RRR, +BS, soft, less distension nontender. Midline dressing in place, no staining 04/22/18 15:53 04/23/18 06:47 04/27/18 08:21 Objective: Vital Signs Temp Pulse Resp BP Pulse Ox 36.4 C 83 16 110/59 L 93 04/27/18 07:39 04/27/18 07:39 04/27/18 07:39 04/27/18 07:39 04/27/18 07:39 Laboratory Results 04/26/18 10:00 04/26/18 10:00 04/26/18 04/27/18 04/28/18 05:59 05:59 05:59 Intake Total 9420 550 953 Output Total 1500 950 Balance 1359 -400 953 ICD10 Worksheet Patient Problems: Problems Problem Status Onset Mass of cecum Acute
[2018-04-27] MEDS: NS 1,000 ML IV SCH (08:28)
--- NOTE | 2018-04-27 18:00 | ASMTCMCOM ---
CM Note CM Note Notes: PT/OT recommending homecare, pt does not want SNF. She lives with her SO and he will be with her when she discharges. CM w/f with pt in am to discuss home care agency choices. DC Plan: Home care Date Signed: 04/27/2018 05:58 PM Electronically Signed By:Ledy Qiu RN
[2018-04-27] MEDS: IBUPROFEN 600 MG TAB PO PRN (18:19)
[2018-04-27] MEDS: LORazepam 0.5 MG TAB PO PRN (20:00)
[2018-04-28] MEDS: IBUPROFEN 600 MG TAB PO PRN (06:23)
[2018-04-28] MEDS: cycloSPORINE 0.05% 30 DROPERETTE/BOX EACHEYE SCH ×2 (10:30→21:20)
[2018-04-28] MEDS: PANTOPRAZOLE SODIUM 40 MG TAB PO SCH (10:30)
[2018-04-28] MEDS: ENOXAPARIN 30 MG/0.3 ML SYR SC SCH (10:30)
[2018-04-28] MEDS ORDERED: BISACODYL 10 MG SUPP PR PRN (13:18)
[2018-04-28] MEDS ORDERED: POLYETHYLENE GLYCOL 3350 17 GM PKT PO PRN (13:18)
[2018-04-28] MEDS ORDERED: MAGNESIUM HYDROXIDE 30 ML UDCUP PO PRN (13:18)
[2018-04-28] MEDS ORDERED: LACTULOSE 20 GM/30 ML UDCUP PO PRN (13:18)
[2018-04-28] MEDS ORDERED: D5W 1/2 NS W/ 20 KCl/L 1,000 ML IV SCH (14:15)
--- NOTE | 2018-04-28 14:20 | SOAPPROG ---
SOAP Progress Note Assessment/Plan: Assessment/Plan: 82yo F POD#7 s/p open R hemicolectomy, SB resection, oophorectomy and liver biopsy for large cecal [id number] colon cancer PO meds. Regular diet Passing flatus and bowel movements Nausea improved but burping Ambulation, deep breathing, IS Dispo: home in next few days - still with minimal po intake Added K to IVF for hypokalemia S: slept better overnight. nausea resolved. distension going down. O: lying in bed, comfortable, NAD CTAB no increased WOB RRR, +BS, soft, less distension nontender. cdi 04/22/18 15:53 04/23/18 06:47 04/27/18 08:21 04/28/18 14:18 Objective: Vital Signs Temp Pulse Resp BP Pulse Ox 36.4 C 91 16 111/61 95 04/28/18 08:00 04/28/18 08:00 04/28/18 08:00 04/28/18 08:00 04/28/18 08:00 Laboratory Results 04/26/18 10:00 04/26/18 10:00 04/27/18 04/28/18 04/29/18 05:59 05:59 05:59 Intake Total 550 1850 Output Total 950 1400 Balance -400 450 ICD10 Worksheet Patient Problems: Problems Problem Status Onset Mass of cecum Acute
--- NOTE | 2018-04-28 14:35 | ASMTCMCOM ---
CM Note CM Note Notes: Met with pt, she has been accepted by [facility], she only wants PT. Gave pt Loan closet list, she feels she may need a walker, CM notified PT. DC Plan: Home care/ [facility] (PT) Date Signed: 04/28/2018 02:35 PM Electronically Signed By:Ledy Qiu RN
[2018-04-28] MEDS: SENNOSIDES/DOCUSATE SODIUM TAB PO SCH (21:20)
[2018-04-28] MEDS: LORazepam 0.5 MG TAB PO PRN (21:26)
[2018-04-29] MEDS: cycloSPORINE 0.05% 30 DROPERETTE/BOX EACHEYE SCH ×2 (07:53→20:24)
--- NOTE | 2018-04-29 08:33 | SOAPPROG ---
SOAP Progress Note Assessment/Plan: Assessment/Plan: 82yo F POD#8 s/p open R hemicolectomy, SB resection, oophorectomy and liver biopsy for large cecal [id number] colon cancer Oncology to see - Dr. Pappas Malnutrition - BMI 16 PO meds Regular diet Passing flatus and BM Ambulation, deep breathing, IS Dispo: home soon. Seen with Dr. Jack S: much better this am. Distension improving. Eating. Pain controlled O: laying in bed, comfortable, NAD CTAB no increased WOB RRR, 1+ peripheral edema +BS, soft, +distended, nontender. Incision CDI Objective: Vital Signs Temp Pulse Resp BP Pulse Ox 36.7 C 103 H 16 121/72 H 93 04/29/18 08:00 04/29/18 08:00 04/29/18 08:00 04/29/18 08:00 04/29/18 08:00 Laboratory Results 04/26/18 10:00 04/26/18 10:00 04/28/18 04/29/18 04/30/18 05:59 05:59 05:59 Intake Total 1850 1200 Output Total 1400 1000 Balance 450 200 ICD10 Worksheet Patient Problems: Problems Problem Status Onset Mass of cecum Acute - ICD10 Problem Qualifiers (1) Mass of cecum
[2018-04-29] MEDS: SENNOSIDES/DOCUSATE SODIUM TAB PO SCH ×2 (09:52→20:24)
[2018-04-29] MEDS: PANTOPRAZOLE SODIUM 40 MG TAB PO SCH (09:52)
[2018-04-29] MEDS: ENOXAPARIN 30 MG/0.3 ML SYR SC SCH (09:52)
--- NOTE | 2018-04-29 16:01 | GCON ---
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 RECOMMENDATIONS: 1. Postoperative management as you are doing. 2. Check CEA. 3. The patient will need additional staging as an outpatient. This will be the PET-CT scan. 4. Once the extent of her disease is known, we can make additional treatment recommendations. The cynthia young is very much interested in therapy provided that it provides adequate quality life for her. I f she is found to have an isolated liver metastases, then liver-directed therapy may be most appropri ate at this point. If she has more disease than can be treated with locally ablated therapy, then co nsideration will be given to giving her systemic treatment, either with single agent gemcitabine or F OLFOX chemotherapy. Because of her recent surgery, would not use Avastin at this time. I would like to see her as an outpatient in 1-2 weeks. I emphasized the importance of improving her nutritional and functional status before we think about her therapeutic options. ASSESSMENT: This 82-year-old white female presented with increasing abdominal pain and nausea, as we ll as weight loss. She went from approximately 93 to 79 pounds over a period of a month or so. She was found to have a lesion in her cecum and had surgery, exploratory laparotomy. During that surgery , she was found have a T4 lesion with involvement of her ovary. There was no evidence of lymph node involvement, but there was evidence of a liver metastases that was biopsy proven. Although her disea se is not considered curable, it is certainly treatable for excellent palliation with a median surviv al without therapy for approximately 9 months, going up to approximately 3 years with treatment. HISTORY OF PRESENT ILLNESS: Please see assessment. PAST MEDICAL HISTORY: Remarkable for iron-deficiency anemia and osteoporosis. PAST SURGICAL HISTORY: Remarkable for cataract surgery and total abdominal hysterectomy in 1977. Th e cataract surgery was in 2017. FAMILY HISTORY: Remarkable for prostate cancer in her grandfather. SOCIAL HISTORY: The patient does not smoke cigarettes. She does not drink alcohol. PHYSICAL EXAMINATION: GENERAL: At this time shows a pleasant, alert woman, oriented x3, in no acute distress. HEENT: Unremarkable. NECK: Supple without adenopathy. LUNGS: Clear to auscultation. CARDIAC: A regular rhythm. ABDOMEN: Midline abdominal incision which is healing well. I do not f eel a liver edge. EXTREMITIES: Her lower extremities show trace edema. LABORATORY DATA: Her CBC today shows a white count of 5.69 with a hemoglobin of 8.6 and a platelet c ount of 410,000. The patient's creatinine is 0.4. Her sodium is 132. Thank you very much for allowing us to see this very pleasant woman. I look forward to assisting val h her management as an outpatient. /[id number]/MODL
[2018-04-29] MEDS: LORazepam 0.5 MG TAB PO PRN (20:24)
[2018-04-30] MEDS: ENOXAPARIN 30 MG/0.3 ML SYR SC SCH (08:02)
[2018-04-30] MEDS: SENNOSIDES/DOCUSATE SODIUM TAB PO SCH ×2 (08:03→20:12)
[2018-04-30] MEDS: PANTOPRAZOLE SODIUM 40 MG TAB PO SCH (08:04)
[2018-04-30] MEDS: cycloSPORINE 0.05% 30 DROPERETTE/BOX EACHEYE SCH ×2 (12:54→20:12)
--- NOTE | 2018-04-30 13:16 | SOAPPROG ---
SOAP Progress Note Assessment/Plan: Assessment: Patient is eating a little more each day. She had a waffle this AM and will order lunch now - if eats and tolerates will plan for DC tomorrow. - 14 days for yamilet Plan: 04/30/18 13:16 Subjective: eating more each day Objective: Vital Signs Temp Pulse Resp BP Pulse Ox 36.6 C 114 H 16 117/76 97 04/30/18 08:00 04/30/18 08:00 04/30/18 08:00 04/30/18 08:00 04/30/18 08:00 Laboratory Results 04/26/18 10:00 04/26/18 10:00 04/29/18 04/30/18 05/01/18 05:59 05:59 05:59 Intake Total 1200 845 Output Total 1000 600 Balance 200 245 ICD10 Worksheet Patient Problems: Problems Problem Status Onset Mass of cecum Acute
[2018-05-01 08:10] VITALS: BP 117/71
[2018-05-01] MEDS: PANTOPRAZOLE SODIUM 40 MG TAB PO SCH (08:17)
[2018-05-01] MEDS: ENOXAPARIN 30 MG/0.3 ML SYR SC SCH (08:18)
[2018-05-01] MEDS: cycloSPORINE 0.05% 30 DROPERETTE/BOX EACHEYE SCH (08:27)
[2018-05-01] MEDS: SENNOSIDES/DOCUSATE SODIUM TAB PO SCH (08:27)
--- NOTE | 2018-05-01 09:22 | PDIAF ---
- Diagnosis Diagnosis: colon cancer Code Status: Full Code - Medication Management Discharge Medications: electronically signed and located in the Home Medication List. - Orders Services needed: Home Care, Physical Therapy, Occupational Therapy Home Care Face to Face: I certify that this patient was under my care and that I had the required [id number] encounter meeting the encounter requirements on the discharge day. My findings support the fact that the patient is homebound as defined in Home Care Face to Face Continued: CMS Chapter 7 Medicare Benefits Manual 30.1.1 , The condition of the patient is such that there exists a normal inability to leave home and consequently, leaving home would require a considerable and taxing effort. Diet Recommendation: no restrictions on diet Diet Texture: Regular Texture Diet Additional Instructions: Continue to increase your PO intake, make sure you are increasing your protein each day No strenuous activity or heavy lifting for 2 weeks. Shower daily, no tub bathing or soaking for 2 weeks Call the clinic, have your yamilet removed at the 14 day elie - Follow Up Care Current Providers and Referrals: Arabella Alfonso MD [Primary Care Provider] - Codi Jack MD [Medical Doctor] - (call the clinic, have yamilet removed this week. )
--- NOTE | 2018-05-01 10:27 | PDDCSUM ---
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 She was subsequently taken to the PACU in the general medical floor. She had very slow advancement of her diet intolerance of food. She visually was tolerating regular diet and having appropriate daily bowel function. She had in-house consultation by Oncology during her visit here. She was subsequently discharged home in stable condition on the 10th DISCHARGE MEDICATIONS All home medications restarted, no pain medications DISPOSITION Home FOLLOW UP Follow up with Dr. Jack later this week for staple removal She will follow up with Oncology this week
--- NOTE | 2018-05-01 14:07 | ASDISCHSUM ---
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 Placement Information Referral Type:*Home Health Care Services Referral ID:[id number] Provider Name:[facility] Care [address] [place] [address] Address 2: City:[place] Selection Factors: State:[place] Patient Contact Information Contact Name:BERNARDO Relationship:Friend Address: Work Phone: City: [facility] Phone: [facility]/Zip Code: Email: Financial Information Financial Class:Medicare Primary Plan Desc:MEDICARE INPATIENT Primary Plan Number:[id number] Secondary Plan Desc:[employer]DEMNITY Secondary Plan Number:[id number] Assessment Information [facility] CM Progress Note CM Note CM Note Notes: Pt is staus post liver biopsy and colon resection. She lives at home with , pt worked with PT today, limited by pain but may progress. Recommendation is SNF vs H, OT still pending. CM w/f. DC Plan: TBD Date Signed: 04/22/2018 04:25 PM Electronically Signed By:Ledy Qiu RN BC CM Progress Note CM Note CM Note Notes: Discussed pt with pharmacist, pt does not want TPN at home. He is eating more and they will start to wean him off. Hopefully he can dc home w/support of . [facility] was given a referra several weeks ago but pt did not want. DC home w/ when medically stable. DC Plan: Independent Date Signed: 04/22/2018 05:00 PM Electronically Signed By:Ledy Qiu RN [facility] CM Progress Note CM Note CM Note Notes: Spoke with pt today - she does not want a SNF d/c but would like HC PT/OT. Encouraged her to get input from PT/OT. Discussed HC options and she would like [facility]. Referral sent via [employer]. Pt lives in [place] [phone]) with her partner. CM will continue to follow. Date Signed: 04/23/2018 11:45 AM Electronically Signed By:SARAH Burris [facility] CM Progress Note CM Note CM Note Notes: PT/OT recommending homecare, pt does not want SNF. She lives with her SO and he will be with her when she discharges. CM w/f with pt in am to discuss home care agency choices. DC Plan: Home care Date Signed: 04/27/2018 05:58 PM Electronically Signed By:Ledy Qiu RN [facility] Progress Note CM Note CM Note Notes: Met with pt, she has been accepted by [facility], she only wants PT. Gave pt Loan closet list, she feels she may need a walker, CM notified PT. DC Plan: Home care/ [facility] (PT) Date Signed: 04/28/2018 02:35 PM Electronically Signed By:Ledy Qiu RN Case Management Discharge Plan Note Case Management Discharge Discharge Order Complete? Answers: Yes Patient to Obtain Answers: via Family Medications Transportation Arranged Answers: Family/Friends Faxed Final Orders Answers: Yes Agency/Facility Transfer Answers: Yes Report Printed & Faxed to Receiving Agency Family Notified Answers: Yes Discharge Comments Notes: CM met with patient prior to discharge. CM has discussed case with Mickey gottlieb/ [facility] who is aware patient will be discharging today. Patient aware she will be receiving a call from [facility] to start care for PT this evening or tomorrow morning. CM and patient discussed need to obtain a front wheeled walker, patient states her partner Natanael has called the numbers on the [employer] and were not successful at finding a walker. They have ordered a walker online but it will not arrive until mid week. CM department has an available walker the patient will borrow and will return to Case Management when she is done with it or if she uses the new walker she is waiting to be delivered. Patient has already signed IM. Patient states she will visit with Dr. Meyer this week for suture removal and will follow up with Oncology this week. CM available to support patient if any further CM needs arise. Date Signed: 05/01/2018 02:06 PM Electronically Signed By:Kelley Ocasio Intervention Information Intervention Type:*IM-Signed Date of Service:04/29/2018 03:31 PM Patient Type:Inpatient Staff Member:Diana Mason Hours: Discipline: Severity: Comment:
--- NOTE | 2018-05-04 17:21 | PQFORM ---
PHYSICIAN QUERY FORM Needs Your Response This query form is being sent to you to assure this patient record is coded properly. 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 Strickland, In reviewing this patients medical record it is noted patient had a BMI of 16 with a Dietary Assessment that notes patient had "Severe Malnutrition per AND /ASPEN criteria. Malnutrition is noted in the SOAP notes dated 04/28 & 04/29. After study, should the diagnosis of "Severe Protein Calorie Malnutrition" be included in the Discharge Summary? Yes No Other more appropriate diagnosis (please specify) Unable to determine Thank you DOMINIK Wyman HIM/Coding Dept. [phone] INSTRUCTIONS FOR RESPONSE: Answer question by clicking on the "Edit Document" button. Move cursor to area below the stars. When complete, hit "Save." Click on the "Sign" button, then click "Sign" again. Type in your PIN and hit "Enter." Add severe protein calorie malnutrition to the DC summary MTDD
== END 2018-05-01 13:10 | disposition home health service (06) | DRG 329 ==
LOC: F3E 09:44
PROVIDERS: ADMIT Surgery; ATTEND Surgery
DX: C18.0 Malignant neoplasm of cecum (principal); E43 Unspecified severe protein-calorie malnutrition; C78.7 Secondary malignant neoplasm of liver and intrahepatic bile duct; D50.9 Iron deficiency anemia, unspecified; M81.0 Age-related osteoporosis without current pathological fracture; Z80.42 Family history of malignant neoplasm of prostate; E87.6 Hypokalemia
CPT/HCPCS: 97116-GP; 97161-GP; 97166-GO; 97530-GO; 97530-GP; 97535-GO; J0694; J1100; J1170; J1650; J1885; J2060; J2270; J2370; J2405; J2704; J3010

== ENCOUNTER → 2018-05-24 | Outpatient (CLI) | payer OTHER | LOC: CIMAGING 17:25 | PROVIDERS: ATTEND Internal Medicine Hematology & Oncology | DX: R60.0 Localized edema (principal) | CPT/HCPCS: 93970-PO ==